=== PATIENT | male | born 1930 | race Caucasian/White ===

== ENCOUNTER 2016-11-26 13:05 | Day surgery (SDC) | payer MEDICARE, BC ==
--- NOTE | ~2016-11-26 | OP ---
Record Of Operation [facility] [address] [place] [address] NAME: NOÉ ZAPATA : 34 STATUS : [facility]#: [id number] AGE: 85 ADM/REG DATE : 11/26/16 MR#: [id number] REPORT SERV DATE: 11/26/16 DICTATED BY: WARREN HENDRICKSON III DATE: 11/26/16 REPORT STATUS : Draft TRANSCRIBED BY: MODL DATE: 11/26/16 DATE OF PROCEDURE: 11/26/2016 PROCEDURE: Cystoscopy right retrograde and resection of suspicious masses. PREOPERATIVE DIAGNOSIS: History of bladder cancer. POSTOPERATIVE DIAGNOSIS: History of bladder cancer. ANESTHESIA: Spinal. SURGEON: Warren Hendrickson M.D. DESCRIPTION OF PROCEDURE: Following induction of adequate spinal anesthesia, he was placed in the dorsal lithotomy position, prepped and draped in the sterile and fashion. The urethra was examined and noted to be normal. The prostate had some residual and regrowth tissue. With the rigid scope, it was easy to distinguish this from tumor. The bladder neck was entered and there was some reddened raised mucosa in the posterior bladder wall. Both orifices were identified, the right was injected, it was irregular as had been beaded as had been in the past. I could not cannulate the left side even with a wire. I could not get a good seal with a cone or a [place]. On the posterior wall and dome, there was erythematous edematous reddened tissue in the site of the former tumor. This was evaluated with 30 and 70 degree lenses following which resectoscope was placed and as much as possible of this tissue was resected. The remaining areas on the dome that were difficult to reach were fulgurated with a rollerball electrode. Hemostasis was achieved and a 22 three-way catheter placed. The patient tolerated the procedure well. OB/MODL Warren Hendrickson III, M.D. / [id number] CC: Almas Gotti III
[~2016-11-26 13:05] MED LIST: *UNABLE1; ALEVE220 MG PO; ASAB PO; CIP5 PO; DCN100 PO; DIABETA5 PO; FLOMAX4 PO; FLUCON1 PO; LANTUS; LEVOTHYROXIN50 MCG PO; LIPITOR40 PO; MICRONASE5 MG PO; NORCO1 TA1 PO; NORCO1 TAB PO; NORV10 PO; PRAV10 PO; PRILOSEC10 MG PO
== END 2016-11-26 18:41 | disposition home or self-care (01) ==
LOC: SDC 13:05
PROVIDERS: Urology
PROC: BT1DZZZ Fluoroscopy of Right Kidney, Ureter and Bladder (ICD-10-PCS; principal; 2016-11-26 14:45)
PROC: 0TBB8ZZ Excision of Bladder, Via Natural or Artificial Opening Endoscopic (ICD-10-PCS; 2016-11-26 14:45)
DX: N30.20 Other chronic cystitis without hematuria (principal); I25.2 Old myocardial infarction; I10 Essential (primary) hypertension; E11.42 Type 2 diabetes mellitus with diabetic polyneuropathy; E03.9 Hypothyroidism, unspecified; K21.9 Gastro-esophageal reflux disease without esophagitis; M06.9 Rheumatoid arthritis, unspecified; M19.90 Unspecified osteoarthritis, unspecified site; N40.0 Benign prostatic hyperplasia without lower urinary tract symptoms; Z85.51 Personal history of malignant neoplasm of bladder; Z95.5 Presence of coronary angioplasty implant and graft; Z95.0 Presence of cardiac pacemaker; Z96.651 Presence of right artificial knee joint; Z96.1 Presence of intraocular lens; Z98.41 Cataract extraction status, right eye; Z98.42 Cataract extraction status, left eye; Z90.49 Acquired absence of other specified parts of digestive tract; Z87.891 Personal history of nicotine dependence; Z88.5 Allergy status to narcotic agent; Z79.82 Long term (current) use of aspirin; Z79.4 Long term (current) use of insulin; Z79.1 Long term (current) use of non-steroidal anti-inflammatories (NSAID); Z79.899 Other long term (current) drug therapy; Z98.890 Other specified postprocedural states
CPT/HCPCS: 74420; 82962; 88307; C1758; C1769; J2370; J3010; Q9967